=== PATIENT | female | born 1930 | race Caucasian/White ===

== ENCOUNTER → 2016-07-09 | Outpatient (CLI) | payer MEDICARE, OTHER ==
[~2016-07-09] MED LIST: CRANBERRY200 MG PO; HYDROCHLOROTHIA25 MG PO; KLOR-CON M1010 MEQ PO; LISINOPRIL20 MG PO; LOPRESSOR100 MG PO; MOBIC7.5 MG PO; NORCO 325-5 MG1 TAB PO; PRAVACHOL80 MG PO; TUMS500 MG PO; VITAMIN C500 M1 PO; VITAMIN E100 UNIT PO
== END | disposition short-term general hospital (02) ==
LOC: CLCARD 03:58
DX: I48.0 Paroxysmal atrial fibrillation (principal); R00.1 Bradycardia, unspecified; E78.5 Hyperlipidemia, unspecified; I10 Essential (primary) hypertension; R94.31 Abnormal electrocardiogram [ECG] [EKG]; Z79.01 Long term (current) use of anticoagulants; Z95.0 Presence of cardiac pacemaker